=== PATIENT | female | born 1990 | race Caucasian/White ===

== ENCOUNTER 2019-08-27 07:37 | Day surgery (SDC) | payer MEDICAID, SELFPAY ==
--- NOTE | 2019-08-26 21:03 | PCM.HP.OB ---
- Problem List (1) Sterilization Status: Acute History Date of Admission: 08/27/19 Final VARSHA Source: LMP History of this : This is a 29 year-old who desires permanent sterilization. Medical History: Medical History (Last Updated 08/26/19 @ 21:05 by Adelaida Gilmore DO) Fibromyalgia M79.7 History of abnormal cervical Pap smear Z87.42 Surgical History: Surgical History (Last Updated 08/26/19 @ 21:05 by Adelaida Gilmore DO) Hx laparoscopic cholecystectomy Z90.49 Allergies dextromethorphan [From Capmist DM] Allergy (Verified 08/20/19 09:18) Hives dextromethorphan HBr [From Theraflu Multi-Symptom Cold] Allergy (Verified 08/20/19 09:18) Hives guaifenesin [From Capmist DM] Allergy (Verified 08/20/19 09:18) Hives phenylephrine HCl [From Theraflu Multi-Symptom Cold] Allergy (Verified 08/20/19 09:18) Hives pseudoephedrine [From Capmist DM] Allergy (Verified 08/20/19 09:18) Hives sulfamethoxazole [From Septra] Allergy (Verified 08/20/19 09:18) Unknown trimethoprim [From Septra] Allergy (Verified 08/20/19 09:18) Unknown Home Medications: Home Medications Cholecalciferol (Vitamin D3) [Vitamin D3] 2 tab PO DAILY 08/20/19 Desogestrel-Ethinyl Estradiol [Apri 28 Day Tablet] 1 ea PO DAILY 08/20/19 Gabapentin [Neurontin] 300 mg PO BID 08/20/19 Loratadine [Claritin] 10 mg PO DAILY 08/20/19 Multivitamins,Therapeutic [Multivitamin] 2 tab PO DAILY 08/20/19 Oxcarbazepine [Trileptal] 150 mg PO BID 08/20/19 Smoking Status: Never smoker History Past Pregnancies: Past Pregnancies Delivery Date Name GA/ Weeks Outcome Route Wt Sex Labor Length Anesthesia Delivery Location Provider FOB Review of Systems Constitutional: Denies: Fever Eyes: Denies: Blurred vision HEENT: Denies: Head Aches Cardiovascular: Denies: Chest Pain Respiratory: Denies: Cough, Shortness of Breath Gastrointestinal: Denies: Abdominal Pain Genitourinary: Denies: Dysuria Gynecological: Denies: Vaginal bleeding Neurological: Denies: Blurred vision Psychiatric: Denies: Anxiety, Depression Physical Exam General: Alert, No apparent distress Cardiovascular: Regular rate Lungs: Clear to auscultation Abdomen: Soft, Non Tender, Non-Distended Extremities:: No edema Neurological: Neuro grossly intact Assessment/Plan All Active Problems Sterilization (Acute) This is a 29 year-old who is requesting permanent sterilization. The patient states she is 100% certain that she does not desire more children in the future, and she wants permanent sterilization. We reviewed that this is a permanent and not reversible surgery, and that there is a risk of regret. Reviewed all other options for control including long acting reversible contraception. Reviewed pre-and postop care. Reviewed surgery in detail. After discussion of risk, benefits, alternatives consent was signed and patient desires to proceed with a laparoscopic salpingectomy.
[2019-08-27] VITALS (9 sets, daily range): BP systolic 100–119; BP diastolic 61–75; PULSE 67–91; RESP 14–16; TEMP 20–36.9; O2SAT 97–100; BMI 25.5
[2019-08-27 08:01] LABS: Internal QC Validated? YES +Cl - CLEAR BKGD; Pregnancy, Urine Negative Negative
[2019-08-27] MEDS: Lactated Ringers 1,000 ML 100 ML IV (08:23)
[2019-08-27 08:26] LABS: Hematocrit 38.2 % (37-47); Hemoglobin 13.1 g/dL (12.0-15.0); Mean Corp Hgb Conc 34.3 g/dL (32-36); Mean Corpuscular Hgb 30.7 pg (27.0-32.0); Mean Corpuscular Volume 89.5 fL (81-99); Mean Platelet Vol. 11.6 fl (6.2-12.0); Platelet Count 261 K/mm3 (150-450); RBC Distribution Width CV 12.5 % (11.6-14.6); RBC Distribution Width SD 40.9 fl (35.1-43.9); Red Blood Count 4.27 M/mm3 (4.2-5.4); White Blood Count 6.5 K/mm3 (4.4-11.0)
--- NOTE | 2019-08-27 08:55 | FALS_PTH ---
PATIENT: TOO ESTRADA [place] [facility] [place][id number] AGE/SX: 29/F ROOM: RE08/27/[address]: Dr. Adelaida Gilmore DO : 1990 BED: DIS: 08/27/2019 SPEC #: [id number] RECD: 08/27/19 12:25 STATUS: REJI NAVJOT #: [id number] CASSIE: 08/27/19 08:[address]: Adelaida Gilmore DEPT: SURGICAL PATHOLOGY RECD BY: Cuco Gamboa Tissues: Fallopian tube Procedures: Surgery Specimen Level II HEADER OPERATION: Laparoscopic bilateral salpingectomy PRE-OP DIAGNOSIS: Sterilization TISSUE SUBMITTED: Bilateral fallopian tubes MICROSCOPIC DIAGNOSIS Right and left fallopian tubes, bilateral salpingectomies: Complete cross-sections of right and left fallopian tube with no pathologic change. AM:[place] 08/28/19 MICROSCOPIC DESCRIPTION Slides are reviewed. GROSS DESCRIPTION Received is one container labeled with the patient's name and designated bilateral fallopian tubes. The specimen consists of bilateral fallopian tubes including fimbrial ends measuring 6.5 cm in length and 0.5 cm in diameter and 4 cm in length and 0.4 cm in diameter. Sections do not reveal any mass lesion. The fallopian tubes are not identified as right or left. Sections reveal unremarkable cut surfaces. Disease Management Nurse sections are submitted in two cassettes with each cassette containing one fallopian tube. / OTILIA:[place] 08/27/19 TC:4 CPT: 46108 x2
--- NOTE | 2019-08-27 08:59 | DCINST_ITS ---
You will use the following diet at home:: No restrictions Discharge Activity: May not drive while taking narcotic pain medications., May Shower Weight Bearing Status: Weight bearing as tolerated Lifting Restrictions: No lifting greater than 20 pounds Call your doctor if your incision/area has: Sudden Increased Bleeding, Increased Pain/ Swelling, Increased Redness, Foul Smelling Discharge, Swelling at the incision site Call your doctor if you observe: Fever of 101 or Higher, Inability to urinate, Inability to have a bowel movement, Using more than one pad per hour, Shortness of breath, Dizziness, Chest pain, Increased palpitations (irregular heartbeat), Calf discomfort, Uncontrolled pain Suture Line Care: Avoid Pulling/Pushing Cleanse incision/area with: Soap & Water Allergies/Adverse Reactions: Allergies dextromethorphan [From Capmist DM] Allergy (Verified 08/27/19 08:09) Hives dextromethorphan HBr [From Theraflu Multi-Symptom Cold] Allergy (Verified 08/27/19 08:09) Hives guaifenesin [From Capmist DM] Allergy (Verified 08/27/19 08:09) Hives phenylephrine HCl [From Theraflu Multi-Symptom Cold] Allergy (Verified 08/27/19 08:09) Hives pseudoephedrine [From Capmist DM] Allergy (Verified 08/27/19 08:09) Hives sulfamethoxazole [From Septra] Allergy (Verified 08/27/19 08:09) Unknown trimethoprim [From Septra] Allergy (Verified 08/27/19 08:09) Unknown Medications to take at Discharge Cholecalciferol (Vitamin D3) [Vitamin D3] 2 tab PO DAILY 08/20/19 Desogestrel-Ethinyl Estradiol [Apri 28 Day Tablet] 1 ea PO DAILY 08/20/19 Gabapentin [Neurontin] 300 mg PO BID 08/20/19 Loratadine [Claritin] 10 mg PO DAILY 08/20/19 Multivitamins,Therapeutic [Multivitamin] 2 tab PO DAILY 08/20/19 Oxcarbazepine [Trileptal] 150 mg PO BID 08/20/19 Primary Care Physician: SERINA RENTERIA [Other] Test Results: Test results from this visit will be discussed in further detail at your follow- up appointment, if applicable. Please Follow Up With: Wiswell,Adelaida, DO When: 1-2 weeks
--- NOTE | 2019-08-27 09:00 | PCM.OPRPT ---
Problem List (1) Sterilization Status: Acute Report of Operation Date of Procedure: 08/27/19 Pre-Operative Diagnosis: Patient requests permanent sterilization Post-Operative Diagnosis: As above Surgery/Procedure Performed:: Laparoscopic bilateral salpingectomy Description of Surgical Findings:: Normal-appearing liver edge. Normal-appearing uterus, bilateral tubes, bilateral ovaries. Normal pelvic cul-de-sac. Type of Anesthesia:: General Special Medications: None Specimen's removed: Bilateral fallopian tubes Drains: None Estimated Blood Loss (mL): < 10 cc Description of Procedure: Patient was taken to the operating room where general anesthesia was induced and adequate. She was prepped and draped in the dorsal lithotomy position using yellowfin stirrups. Bladder was drained. A weighted speculum was placed to expose the cervix and the anterior lip was grasped with a single-tooth tenaculum. A uterine manipulator was placed. The single-tooth tenaculum and the weighted speculum were removed from the vagina. Gloves were changed and attention was turned to the abdominal portion of the case. Local was injected infraumbilically and an incision was made to accommodate a 5 mm port. The port was introduced into the abdomen under direct visualization. Once confirmed intraperitoneal, CO2 insufflation was initiated. A right lateral 5 mm port was placed. A left lateral 5 mm port was placed. Findings were noted as above. The left fallopian tube was followed out to the fimbriated end, and the mesosalpinx was cauterized and transected using the LigaSure device. The left fallopian tube was removed from the abdomen. The same was performed to the right fallopian tube. The bilateral fallopian tubes were sent to the pathologist for review. Hemostasis was noted. All ports were removed from the abdomen. The incisions were closed in a subcuticular fashion. All instruments were removed from the vagina and vaginal sweep was performed. Instrument counts were correct. The patient was taken to the recovery room in stable condition. Grafts/Implants Used: None - Complications None - Admit VTE Documentation VTE Present on Admission: No VTE Mechan Device Prophylaxis: SCD's
[2019-08-27] MEDS: Bupivacaine Mpf 0.5% 30 ML VIAL (09:17)
== END 2019-08-27 12:10 | disposition home or self-care (01) ==
LOC: SDC 07:37 → AC 07:39
PROVIDERS: Anesthesiology; Referring Provider Obstetrics & Gynecology; Visit Provider Obstetrics & Gynecology
PROC: (CPT 58661; principal; 2019-08-27 08:40)
DX: Z30.2 Encounter for sterilization (principal); M79.7 Fibromyalgia
CPT/HCPCS: 00840; 58661; 81025; 85027; 86850; 86900; 86901; 88302; J7120; J2405